=== PATIENT | female | born 1960 | race Caucasian/White ===

== ENCOUNTER 2019-04-29 16:18 | Emergency (ER) | payer SELFPAY ==
[~2019-04-29] VITALS: Ht 167.6 cm; Wt 115.7 kg
[2019-04-29 16:49] VITALS: BP 141/86
--- NOTE | 2019-04-29 17:45 | NUR ---
PATIENT LEFT WITHOUT BEING SEEN BY DR. SAVAGE. NO FURTHER CARE PROVIDED FOR PATIENT.
== END 2019-04-29 17:45 | disposition left against medical advice (07) ==
LOC: MED 16:18
DX: S40.812A Abrasion of left upper arm, initial encounter (principal); S40.811A Abrasion of right upper arm, initial encounter; Z53.21 Procedure and treatment not carried out due to patient leaving prior to being seen by health care provider; V49.9XXA Car occupant (driver) (passenger) injured in unspecified traffic accident, initial encounter; Y93.89 Activity, other specified; Y92.488 Other paved roadways as the place of occurrence of the external cause; Y99.8 Other external cause status